=== PATIENT | female | born 1970 | race African-American/Black ===

== ENCOUNTER 2017-08-16 09:04 | Emergency (ER) | payer OTHER ==
[~2017-08-16] VITALS: Ht 162.6 cm; Wt 146.5 kg
[2017-08-16 09:17] VITALS: BP 132/81
[2017-08-16] MEDS ORDERED: IBUPROFEN600 MG ORAL (10:15)
[2017-08-16 10:20] VITALS: BP 132/81
--- NOTE | 2017-08-16 10:20 | Diagnostic Imaging Report ---
Indication: Pain Findings: 3 views of the left elbow were obtained. No fractures identified. There is mild osteophyte formation involving the coronoid process of the ulna. The study is not optimal technically. There is some possible small joint effusion. IMPRESSION: Possible small joint effusion. No obvious acute fracture
--- NOTE | 2017-08-16 10:28 | Emergency Room Report ---
History of Present Illness General Chief Complaint: Upper Extremity Injury Source: Patient Present Illness HPI 46-year-old female presents ED complaining of left elbow pain. Patient states she mechanical trip and fall 3 days ago and landed on her left elbow. Notes persistent pain since. Throbbing, 03/09, nonradiating. Denies any other injuries. No other aggravating relieving factors. Denies any other associated symptoms Allergies: Uncoded Allergies: SULFA (Allergy, Unknown, 08/16/17) Patient History Past Medical History: none, DM, HTN, asthma, COPD Past Surgical History: none Pertinent Family History: none Social History: Denies: smoking, alcohol use, drug use Last Menstrual Period: 07/09/2017 Now: No Immunizations: UTD Reviewed Nursing Documentation: PMH: Agreed, PSxH: Agreed Nursing Documentation-PMH Past Medical History: No History, Except For Hx Hypertension: Yes Hx Asthma: Yes Hx COPD: Yes Hx Diabetes: Yes Review of Systems All Other Systems: negative except mentioned in HPI Physical Exam Vital Signs Date Time Temp Pulse Resp B/P (MAP) Pulse Ox O2 Delivery O2 Flow Rate FiO2 08/16/17 09:09 97.6 98 16 132/81 95 Room Air 97.5 Sp02 EP Interpretation: reviewed, normal General Appearance: no apparent distress, alert, GCS 15, non-toxic, obese Head: normocephalic Eyes: bilateral eye normal inspection, bilateral eye PERRL ENT: normal ENT inspection Neck: normal inspection Respiratory: normal inspection Cardiovascular #1: normal inspection Gastrointestinal: normal inspection Rectal: deferred Genitourinary: no CVA tenderness Musculoskeletal: tender - L elbow Neurologic: alert, oriented x3, responsive, motor strength/tone normal, sensory intact, speech normal Psychiatric: normal inspection Skin: normal inspection Lymphatic: normal inspection Procedures Splinting Splinting : Consent: Verbal Pre-Made Type: shoulder sling Pre-Proc Neuro Vasc Exam: normal Post-Proc Neuro Vasc Exam: normal Patient Tolerated: Well Complications: None Medical Decision Making Diagnostic Impression: Primary Impression: Elbow contusion Qualified Codes: S50.02XA - Contusion of left elbow, initial encounter ER Course Hospital Course 46-year-old F presents to ED complaining of L elbow pain s/p trip and fall Differential diagnoses include: Fracture, dislocation, sprain, contusion Clinical course Patient placed on stretcher. After initial history and physical, I ordered xrays of L elbow Xrays prelim read shows no acute fracture/dislocation. small joint effusion placed in shoulder sling. discussed findings with patient Diagnosis - elbow contusion Stable and discharged to home with prescription for Motrin. apply ice, keep elevated. weight bear as tolerated. Followup with PMD. Return to ED if symptoms recur or worsen Other X-Ray Diagnostic Results Other X-Ray Diagnostic Results : X-Ray ordered: l elbow # of Views/Limited Vs Complete: 3 View Indication: Pain EP Interpretation: Yes Interpretation: no dislocation, no soft tissue swelling, no fractures, other - small joint effusion Impression: No acute disease Electronically Signed by: Electronically signed by Lucio Hernandez MD Last Vital Signs Date Time Temp Pulse Resp B/P (MAP) Pulse Ox O2 Delivery O2 Flow Rate FiO2 08/16/17 10:20 97.5 16 132/81 95 Room Air 97.5 08/16/17 09:09 98 Status: improved Disposition: HOME, SELF-CARE Condition: Stable Scripts Ibuprofen* (MOTRIN*) 600 Mg Tablet 600 MG ORAL Q8H Y for For Pain, #30 TAB 0 Refills Prov: LUCIO HERNANDEZ M.D. 08/16/17 Patient Instructions: Elbow Contusion, [id number] LUCIO HERNANDEZ M.D. Aug 16, 2017 10:28
== END 2017-08-16 10:21 | disposition home or self-care (01) ==
LOC: EMR 09:27
DX: S50.02XA Contusion of left elbow, initial encounter (principal); W01.0XXA Fall on same level from slipping, tripping and stumbling without subsequent striking against object, initial encounter; Y92.9 Unspecified place or not applicable; I10 Essential (primary) hypertension; E11.9 Type 2 diabetes mellitus without complications; J44.9 Chronic obstructive pulmonary disease, unspecified; Z88.2 Allergy status to sulfonamides
CPT/HCPCS: 29240; 99283

== ENCOUNTER 2019-01-18 09:41 | Emergency (ER) | payer OTHER ==
[~2019-01-18] VITALS: Ht 162.6 cm; Wt 147.0 kg
[~2019-01-18 09:41] MED LIST: IBUPROFEN600 MG ORAL
--- NOTE | 2019-01-18 09:56 | NUR ---
ED Nurse Note: pt walked in due to chronic low back pain denies trauma. pt stated the pain started 2 weeks ago and and got worse last night. pt stated she is been going in a physical therapy and askng if she can have x ray here. ermd on bedside talking to pt regarding the plan of care. will continue to monitor.
[2019-01-18 09:58] VITALS: BP 113/59
--- NOTE | 2019-01-18 10:02 | Emergency Room Report ---
History of Present Illness General Chief Complaint: Back Pain-No Injury Source: Patient Present Illness HPI Patient presents with complaints of increased mid back and lower back pain Patient reports that she is under the care of pain management And had a fall last week She describes it as a 'minor fall' Denies any loss of control of bowel or urination denies any focal weakness denies any neuropathy denies any upper extremity weakness denies any saddle paresthesia Patient describes the pain as the mid upper back down towards her lower back area Allergies: Uncoded Allergies: SULFA (Allergy, Unknown, 08/16/17) Patient History Past Medical History: see triage record Pertinent Family History: none Last Menstrual Period: December 07 Reviewed Nursing Documentation: PMH: Agreed; PSxH: Agreed Nursing Documentation-PMH Hx Cardiac Problems: Yes - HLD Hx Hypertension: Yes Hx Asthma: Yes Hx COPD: Yes Hx Diabetes: Yes Review of Systems All Other Systems: negative except mentioned in HPI Physical Exam Vital Signs Date Time Temp Pulse Resp B/P (MAP) Pulse Ox O2 Delivery O2 Flow Rate FiO2 01/18/19 09:44 97.7 102 17 113/59 (77) 96 Room Air Sp02 EP Interpretation: reviewed, normal General Appearance: no apparent distress - Morbidly obese Head: normocephalic, atraumatic Eyes: bilateral eye PERRL, bilateral eye EOMI ENT: hearing grossly normal, normal pharynx, TMs + canals normal, uvula midline Neck: full range of motion, supple, no meningismus, no bony tend Respiratory: lungs clear, normal breath sounds, no rhonchi, no respiratory distress, no retraction, no accessory muscle use Cardiovascular #1: normal peripheral pulses, regular rate, rhythm, no edema, no gallop, no JVD, no murmur Gastrointestinal: normal bowel sounds, non tender, soft, no mass, no organomegaly, non-distended, no guarding, no hernia, no pulsatile mass, no rebound Genitourinary: no CVA tenderness Musculoskeletal: normal inspection - Patient has equal nutrition educator bilaterally, ambulating without focal deficit sensory is intact,, patient describes reproducible discomfort paraspinal mid thoracic and upper lumbar spine Neurologic: oriented x3, responsive, 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 III-XII nml as tested, motor strength/ tone normal, sensory intact Psychiatric: mood/affect normal Skin: no rash Lymphatic: normal inspection, no adenopathy Medical Decision Making Diagnostic Impression: Primary Impression: Back pain ER Course Multiple differentials and consideration including but not limited to fracture sprain, other vascular pathology musculoskeletal pathology patient has a benign medical evaluation no obvious focal Changes or deficits patient does have some significant chronicity to her presentation X-ray imaging is obtained for initial evaluation without any obvious acute pathology and patient will continue close outpatient follow-up Other X-Ray Diagnostic Results Other X-Ray Diagnostic Results #1: X-Ray ordered: L-spine # of Views/Limited Vs Complete: 3 View Indication: Pain EP Interpretation: Yes Interpretation: no dislocation, no soft tissue swelling, no fractures Impression: No acute disease Electronically Signed by: Elliott Abreu DO Other X-Ray Diagnostic Results #2: X-Ray ordered: Thoracic spine # of Views/Limited Vs Complete: 2 View Indication: Pain EP Interpretation: Yes Interpretation: no dislocation, no soft tissue swelling, no fractures Impression: No acute disease - Calcification noted, no obvious acute pathology Electronically Signed by: Elliott Abreu DO Last Vital Signs Date Time Temp Pulse Resp B/P (MAP) Pulse Ox O2 Delivery O2 Flow Rate FiO2 01/18/19 09:58 97.7 102 17 113/59 96 Room Air Status: improved Disposition: HOME, SELF-CARE Condition: Improved Referrals: NON PHYSICIAN (PCP) Additional Instructions: Patient is provided with the discharge instructions notified to follow up with primary doctor in the next 2-3 days otherwise return to the er with any worsening symptoms. Please note that this report is being documented using [employer] technology. This can lead to erroneous entry secondary to incorrect interpretation by the dictating instrument. Elliott Abreu DO Jan 18, 2019 10:02
--- NOTE | 2019-01-18 10:17 | NUR ---
ED Nurse Note: pt went to xray with tech
--- NOTE | 2019-01-18 10:35 | NUR ---
ED Nurse Note: pt went back from xray with tech
[2019-01-18 11:22] VITALS: BP 113/59
--- NOTE | 2019-01-18 11:22 | NUR ---
ER DISCHARGE NOTE: Patient is cleared to be discharged per ERMD, pt is aox4, on room air, with stable vital signs. pt was given dc and prescription instructions, pt was able to verbalize understanding, pt id band removed without complications. pt is able to ambulate with steady gait. pt took all belongings.
--- NOTE | 2019-01-18 12:03 | Diagnostic Imaging Report ---
Indications: Chronic back pain Technique: Two views of the thoracic spine Comparison: None Findings: Vertebral body heights are preserved. There is mild multilevel degenerative disc narrowing. Bony alignment is normal. No acute fractures. No dislocations. Pedicles are intact. No gross paraspinous mass Impression: Mild degenerative changes, as described No acute bony trauma
--- NOTE | 2019-01-18 12:45 | Diagnostic Imaging Report ---
Indication: Chronic back pain Technique: 3 views of the lumbar spine Comparison: None Findings: Bony alignment is normal. Vertebral body heights are preserved. There are small multilevel anterior osteophytes. The disc spaces are preserved. No acute fractures. No dislocations. The pedicles are intact. Sacral arches are preserved. Sacroiliac joint spaces are preserved. Calcifications project over the upper pole of the left kidney. There is a 14 x 8 mm calcification projected to the left of L4 Impression: Degenerative changes as described. No acute bony trauma Probable left upper pole intrarenal calculi 14 x 8 mm calcification in the left lumbar spine, significance uncertain
== END 2019-01-18 11:22 | disposition home or self-care (01) ==
LOC: EMR 09:55
DX: M54.5 Low back pain (principal); Z88.2 Allergy status to sulfonamides; I10 Essential (primary) hypertension; E78.5 Hyperlipidemia, unspecified; J44.9 Chronic obstructive pulmonary disease, unspecified; E11.9 Type 2 diabetes mellitus without complications; E66.01 Morbid (severe) obesity due to excess calories; Z68.43 Body mass index [BMI] 50.0-59.9, adult
CPT/HCPCS: 72020; 72070; 99283